=== PATIENT | female | born 1975 | race Caucasian/White ===

== ENCOUNTER 2018-07-27 14:10 | Emergency (ER) | payer SELFPAY ==
[2018-07-27] MEDS: Bacitracin Oint 1 GM U/D Packet TOP ONE (15:26)
[2018-07-27] MEDS: Diphtheria,Pertussis(Acell),Tetanus Vaccine 0.5 ML SDV IM ONE (15:28)
--- NOTE | 2018-07-27 15:39 | EDM.PDOC ---
<Sheeba Martins M - Last Filed: 07/27/18 16:13> ED HPI GENERAL MEDICAL PROBLEM - General Chief Complaint: Laceration Stated Complaint: CUT FINGER ON RIGHT HAND Time Seen by Provider: 07/27/18 16:14 Source of Information: Reports: Patient History Limitations: Reports: No Limitations - History of Present Illness Onset: Today Onset Date: 07/27/18 Onset Time: 13:30 Right Finger-Middle Pain Score (Numeric/FACES): 3 - Related Data Allergies Allergy/AdvReac Type Severity Reaction Status Date / Time No Known Allergies Allergy Verified 07/27/18 14:48 Home Meds: Home Meds NK [No Known Home Meds] 07/27/18 [History] Past Medical History [employer] WORKER History: Reports: Musculoskeletal History: Reports: Fracture - Past Surgical History HEENT Surgical History: Reports: Tonsillectomy Musculoskeletal Surgical History: Reports: Shoulder Surgery Social & Family History - Tobacco Use Smoking Status *Q: Former Smoker Used Tobacco, but Quit: Yes Month/Year Tobacco Last Used: 2017 - Caffeine Use Caffeine Use: Reports: Coffee, Soda - Recreational Drug Use Recreational Drug Use: No ED ROS GENERAL - Review of Systems Review Of Systems: ROS reveals no pertinent complaints other than HPI. Constitutional: Reports: No Symptoms Skin: Reports: Wound (2.5 cm laceration to right middle finger; cut it on tin can. Pt. states profuse bleeding after cutting. Minimal washing of wound before coming to ER. ) ED EXAM, SKIN/RASH Exam: See Below Exam Limited By: No Limitations General Appearance: Alert, WD/WN, No Apparent Distress Extremities: Normal Capillary Refill (3rd digit of right hand with normal range of motion. Tendon strength normal. Able to flex and extend fully. Sensation intact. Capillary refill less than 2 seconds. Denies tingling and numbness. Laceration clean cut, edges approximate well. ) Skin: Warm, Dry, Intact, Normal Color ED SKIN PROCEDURES - Laceration/Wound Repair Right Midline Dorsal Digit - 3rd (Middle) Distal NVT: Neuro & Vascular Intact, No Tendon Injury Anesthetic Type: Digital Local Anesthesia - Lidocaine (Xylocaine): 1% Plain Local Anesthetic Volume: 1cc Skin Prep: Isopropyl Alcohol (Alcohol) Closed with: Sutures Suture Size: 4-0 Suture Type: Nylon, Interrupted Sterile Dressing Applied: Provider Tetanus Status Addressed: Yes Complications: No Course - Vital Signs Last Recorded V/S: Last Vital Signs Temp 98.4 F 07/27/18 14:52 Pulse 82 07/27/18 14:52 Resp 16 07/27/18 14:52 BP 128/83 07/27/18 14:52 Pulse Ox 97 07/27/18 14:52 - Orders/Labs/Meds Orders: Active Orders 24 hr Category Date Time Status Vaccines to be Administered [RC] PER UNIT ROUTINE Care 07/27/18 15:19 Active Meds: Medications Discontinued Medications Generic Name Dose Route Start Last Admin Trade Name Sanaz PRN Reason Stop Dose Admin Bacitracin 1 dose 07/27/18 15:19 07/27/18 15:26 Bacitracin Oint 1 Gm TOP 07/27/18 15:20 1 dose ONETIME ONE Administration Diphtheria/Tetanus/Acell Pertussis 0.5 ml 07/27/18 15:19 07/27/18 15:28 Adacel IM 07/27/18 15:20 0.5 ml .ONCE ONE Administration Lidocaine HCl 5 ml 07/27/18 15:19 07/27/18 15:26 Xylocaine-Mpf 1% INJECT 07/27/18 15:20 5 ml ONETIME ONE Administration Departure - Departure Disposition: Home, Self-Care 01 Clinical Impression: Laceration of right middle finger Qualifiers: Encounter type: initial encounter Damage to nail status: without damage Foreign body presence: without foreign body Qualified Code(s): S61.212A - Laceration without foreign body of right middle finger without damage to nail, initial encounter - Discharge Information Referrals: Britany Mcdonough MD [Primary Care Provider] - Forms: ED Department Discharge Additional Instructions: Suture removal in 10 days, follow wound care instruction sheet, return to primary care or emergency department for suture removal call with worsening of symptoms - My Orders Last 24 Hours: My Active Orders 07/27/18 15:19 Vaccines to be Administered [RC] PER UNIT ROUTINE - Assessment/Plan Last 24 Hours: My Active Orders 07/27/18 15:19 Vaccines to be Administered [RC] PER UNIT ROUTINE <Nilesh Rondon - Last Filed: 07/27/18 16:18> ED HPI GENERAL MEDICAL PROBLEM - History of Present Illness INITIAL COMMENTS - FREE TEXT/NARRATIVE: 42-year-old female presents emergency department today with a laceration to her middle finger which she did at home this on her right hand she injured it on a tin can she has no functional complaints ED EXAM, SKIN/RASH Front/Back Body Diagram: 1 - 1 cm laceration partially through the dermis over the middle phalange he digit #3 right hand ED SKIN PROCEDURES - Laceration/Wound Repair Right Midline Dorsal Digit - 3rd (Middle) Lac/Wound length In cm: 1 Appearance: Superficial, Linear Saline Irrigation (cc's): 30 Exploration/Debridement/Repair: Wound Explored, In a Bloodless Field, Explored to Base # of Sutures: 2 Sterile Dressing Applied: Nurse Tetanus Status Addressed: Yes (Updated today) Departure - Departure Time of Disposition: 16:17 Condition: Fair - Assessment/Plan Plan: Assessment Acuity = acute Site and laterality = 1 cm laceration digit #3 right hand Etiology = secondary to trauma with a tin can Manifestations = none Location of injury = Home Lab values = none Plan Suture removal in 10 days, follow wound care instruction sheet follow-up with primary care return emergency department for suture removal Nilesh Pena MD was personally available for consultation in the ED. I have reviewed the chart and agree with the documentation as recorded by the MEAT AND P[employer]LTRY INSPECTOR Student, including the assessment, treatment plan and disposition. Nilesh Pena MD personally saw and examined the patient. I have reviewed and agree with the MEAT AND POULTRY INSPECTOR Student's findings. This note was dictated using [employer] voice recognition software please call with any questions on syntax or grammar.
== END 2018-07-27 16:27 | disposition home or self-care (01) ==
LOC: JP.ED 14:10
DX: S61.212A Laceration without foreign body of right middle finger without damage to nail, initial encounter (principal); Z87.891 Personal history of nicotine dependence; Z23 Encounter for immunization; W45.8XXA Other foreign body or object entering through skin, initial encounter
CPT/HCPCS: 12001; 90471; 90715; 99282; 99283; J2001